=== PATIENT | female | born 1985 | race Caucasian/White ===

== ENCOUNTER → 2017-02-21 | Outpatient (CLI) | payer OTHER ==
[2017-02-21 13:36] LABS: BASOPHIL % 1.5 % (0-2)
[2017-02-21 13:37] LABS: PLATELET COUNT 432 x10^3mcL (130-400); RED CELL DISTRIBUTION WIDTH 15.4 % (11.5-14.5)
== END | disposition home or self-care (01) ==
LOC: LB 12:39
DX: R53.83 Other fatigue (principal)

== ENCOUNTER → 2017-02-22 | Outpatient (CLI) | payer OTHER ==
[2017-02-22 14:04] LABS: FREE T4 1.14 ng/dL (0.76-1.46); FREE THYROXINE INDEX 3.4 ug/dL (1.4-4.5); T4(THYROXINE) 10.3 ug/dL (4.7-13.3)
[2017-02-22 14:05] LABS: T3 TOTAL 1.25 ng/mL
== END | disposition home or self-care (01) ==
LOC: LB 12:57
DX: E03.9 Hypothyroidism, unspecified (principal)
CPT/HCPCS: 84439

== ENCOUNTER → 2018-03-05 | Outpatient (CLI) | payer OTHER ==
[2018-03-05 10:18] LABS: BASOPHIL % 0.3 % (0-2)
[2018-03-05 10:19] LABS: microscopic required? YES; urine erythrocyte 1+ (NEGATIVE)
[2018-03-05 10:21] LABS: PLATELET COUNT 449 x10^3mcL (130-400); RED CELL DISTRIBUTION WIDTH 18.2 % (11.5-14.5); rbc morphology (normal/abnorm) ABNORMAL (NORMAL)
[2018-03-05 10:47] LABS: ALBUMIN 3.6 g/dL (3.4-5.0); ALKALINE PHOSPHATASE 88 U/L (46-116); ALT/SGPT 17 U/L (14-59); AST/SGOT 15 U/L (15-37); BILIRUBIN TOTAL 0.4 mg/dL (0.20-1.00); CALCIUM 8.4 mg/dL (8.5-10.1); CHLORIDE SERUM 106 mmol/L (98-107); CHOLESTEROL 175 mg/dL (<200); CHOLESTEROL/HDL RATIO 3.7; CREATININE SERUM 0.8 mg/dL (0.6-1.0); GFR1 > 60 mL/min; GLUCOSE SERUM 90 mg/dL (74-106); HDL CHOLESTEROL 47 mg/dL (40-60); POTASSIUM SERUM 3.5 mmol/L (3.5-5.1); SODIUM SERUM 142 mmol/L (136-145); TOTAL PROTEIN, SERUM 7.1 g/dL (6.4-8.2); TRIGLYCERIDES 79 mg/dL (<150)
== END | disposition home or self-care (01) ==
LOC: LB 09:56
PROVIDERS: Family Medicine Geriatric Medicine
DX: Z13.228 Encounter for screening for other metabolic disorders (principal); Z13.220 Encounter for screening for lipoid disorders; Z13.21 Encounter for screening for nutritional disorder; Z13.1 Encounter for screening for diabetes mellitus; Z13.0 Encounter for screening for diseases of the blood and blood-forming organs and certain disorders involving the immune mechanism
CPT/HCPCS: 82652

== ENCOUNTER → 2018-05-14 | Outpatient (CLI) | payer OTHER ==
[2018-05-14 17:10] LABS: BASOPHIL % 0.4 % (0-2); PLATELET COUNT 354 x10^3mcL (130-400)
[2018-05-14 17:12] LABS: RED CELL DISTRIBUTION WIDTH 22.2 % (11.5-14.5)
[2018-05-14 17:15] LABS: ALBUMIN 3.7 g/dL (3.4-5.0); ALKALINE PHOSPHATASE 66 U/L (46-116); ALT/SGPT 18 U/L (14-59); AST/SGOT 13 U/L (15-37); BILIRUBIN TOTAL 0.4 mg/dL (0.20-1.00); CALCIUM 8.7 mg/dL (8.5-10.1); CARBON DIOXIDE 26.3 mmol/L (21-32); CHLORIDE SERUM 106 mmol/L (98-107); CREATININE SERUM 0.7 mg/dL (0.6-1.0); GFR1 > 60 mL/min; GLUCOSE SERUM 89 mg/dL (74-106); POTASSIUM SERUM 3.9 mmol/L (3.5-5.1); SODIUM SERUM 141 mmol/L (136-145); TOTAL PROTEIN, SERUM 7.1 g/dL (6.4-8.2)
[2018-05-14 17:23] LABS: TOTAL IRON BINDING CAPACITY 341 ug/dL (250-450)
[2018-05-14 17:27] LABS: IRON 20 ug/dL (50-170)
== END | disposition home or self-care (01) ==
LOC: LB 16:22
DX: D50.0 Iron deficiency anemia secondary to blood loss (chronic) (principal)

== ENCOUNTER 2018-10-03 11:02 | Emergency (ER) | payer OTHER ==
[~2018-10-03] VITALS: Ht 149.9 cm; Wt 77.1 kg
[2018-10-03 11:07] VITALS: BP 119/76
== END 2018-10-03 11:38 | disposition home or self-care (01) ==
LOC: ED 11:02
DX: J02.8 Acute pharyngitis due to other specified organisms (principal); I88.9 Nonspecific lymphadenitis, unspecified; F41.9 Anxiety disorder, unspecified; E03.9 Hypothyroidism, unspecified; Z91.040 Latex allergy status

== ENCOUNTER 2018-11-18 09:34 | Emergency (ER) | payer OTHER ==
[~2018-11-18] VITALS: Ht 149.9 cm; Wt 79.4 kg
[2018-11-18 09:40] VITALS: BP 114/53; Ht 149.9 cm; Wt 79.4 kg
[2018-11-18 10:49] LABS: BASOPHIL % 0.6 % (0-2); PLATELET COUNT 329 x10^3mcL (130-400); RED CELL DISTRIBUTION WIDTH 14.2 % (11.5-14.5)
[2018-11-18 10:57] LABS: CALCIUM 8.3 mg/dL (8.5-10.1); CARBON DIOXIDE 30.8 mmol/L (21-32); CHLORIDE SERUM 105 mmol/L (98-107); CREATININE SERUM 0.7 mg/dL (0.6-1.0); GFR1 > 60 mL/min; GLUCOSE SERUM 89 mg/dL (74-106); POTASSIUM SERUM 3.6 mmol/L (3.5-5.1); SODIUM SERUM 142 mmol/L (136-145)
[2018-11-18 11:08] LABS: ALBUMIN 3.3 g/dL (3.4-5.0); ALKALINE PHOSPHATASE 63 U/L (46-116); ALT/SGPT 20 U/L (14-59); AST/SGOT 15 U/L (15-37); BILIRUBIN TOTAL 0.24 mg/dL (0.20-1.00)
== END 2018-11-18 12:01 | disposition home or self-care (01) ==
LOC: ED 09:34
PROVIDERS: Emergency Medicine
DX: J06.9 Acute upper respiratory infection, unspecified (principal)
CPT/HCPCS: 36415; 87804; Q0092